=== PATIENT | male | born 1985 | race Caucasian/White ===

== ENCOUNTER → 2016-11-23 | Outpatient (CLI) | payer OTHER ==
[~2016-11-23] MED LIST: ALPR0.25 PO
--- NOTE | 2016-11-23 09:11 | Diagnostic Imaging Report ---
EXAMINATION: Three views of the left knee. INDICATION: Left knee pain. FINDINGS: There is a 4 mm elongated osseous fragment seen along the anterior/superior margin of the patella. This could relate to a small avulsion injury of uncertain age. There is otherwise no fracture, dislocation, or radiopaque foreign body. There is soft tissue swelling anterior to the patella. The joint spaces appear unremarkable. IMPRESSION: Prominent soft tissue swelling anterior to the patella is seen. A 4 mm elongated osseous fragment at the anterior/superior margin of the patella could correlate with a small avulsion injury of uncertain age. Dictated by: Dictated on workstation # [id number]
== END ==
LOC: RAD 08:43
PROVIDERS: ATTEND Nurse Practitioner Family
DX: R22.42 Localized swelling, mass and lump, left lower limb (principal)
CPT/HCPCS: 73562